=== PATIENT | male | born 1965 | race Caucasian/White ===

== ENCOUNTER 2020-03-31 09:51 | Outpatient (CLI) | payer BC, SELFPAY ==
--- NOTE | 2020-03-31 09:54 | EST_ITS ---
Patient Info Name: Todd Anderson Age: 55 years : 1965 Gender: Male Ht: 79 in Wt: 300 lbs BSA: 2.79 m2 Heart Rhythm: Sinus Rhythm Technical Quality: Good Exam Date: 03/31/2020 10:23 AM Exam Location: [facility] Patient Status: Outpatient Admit Date: 03/31/2020 Staff Ordering Physician: Kenan Dumas DO Conveyor Feeder: Stacey Bowers RDCS Attending Provider: ALEKS BRASHER Referring Physician: Piter CARLSON; Exam Type: CA stress echo Study Info Indications R07.9 - Chest pain, unspecified Treadmill exercise stress echocardiogram is performed. Summary 1. Maximal treadmill stress ECG study achieving 100% of age predicted maximal heart rate and 12.1 METs at peak exercise. Average exercise capacity for age. 2. Negative stress echocardiogram for ischemia by wall motion analysis. 3. Nondiagnostic ECG changes which did not meet strict criteria for reversible myocardial ischemia. 4. Occasional stress-induced PVCs. 5. Normal heart rate and hypertensive blood pressure response to exercise. 6. No stress-induced chest pain. Stress Echo Findings Left Ventricle Left ventricular systolic function is normal with an estimated ejection fraction of 65 % at rest. No echocardiographic evidence of myocardial ischemia post exercise with hyperdynamic LV systolic function, smaller cavity size, and no regional wall motion abnormalities. Left Ventricle Left ventricular chamber size and systolic function are normal with no regional wall motion abnormalities with an estimated ejection fraction of 65-70%. Ventricles Name Value Normal LV Fractional Shortening/Ejection Fraction 2D/MM Visually Estimated EF 65 % 52-72 Protocol: Ethan Stress ECG Details Stage: REST Duration (min): 0 min : 51 sec Speed (mph): 0.0 Grade (%): 0 HR (bpm): 78 SBP (mmHg): 131 DBP (mmHg): 70 METS: --- Stage: REST Duration (min): 19 min : 41 sec Speed (mph): 0.0 Grade (%): 0 HR (bpm): 93 SBP (mmHg): 131 DBP (mmHg): 70 METS: --- Stage: STAGE 1 Duration (min): 1 min : 0 sec Speed (mph): 1.7 Grade (%): 10 HR (bpm): 106 SBP (mmHg): 131 DBP (mmHg): 70 METS: --- Stage: STAGE 1 Duration (min): 2 min : 0 sec Speed (mph): 1.7 Grade (%): 10 HR (bpm): 111 SBP (mmHg): 131 DBP (mmHg): 70 METS: --- Stage: STAGE 1 Duration (min): 3 min : 0 sec Speed (mph): 1.7 Grade (%): 10 HR (bpm): 112 SBP (mmHg): 196 DBP (mmHg): 79 METS: --- Stage: STAGE 2 Duration (min): 1 min : 0 sec Speed (mph): 2.5 Grade (%): 12 HR (bpm): 121 SBP (mmHg): 196 DBP (mmHg): 79 METS: --- Stage: STAGE 2 Duration (min): 2 min : 0 sec Speed (mph): 2.5 Grade (%): 12 HR (bpm): 128 SBP (mmHg): 197 DBP (mmHg): 79 METS: --- Stage: STAGE 2 Duration (min): 3
== END 2020-03-31 09:52 | disposition home or self-care (01) ==
PROVIDERS: PCP Family Medicine; Visit Provider Internal Medicine Cardiovascular Disease
DX: R07.89 Other chest pain (principal)
CPT/HCPCS: 93351